=== PATIENT | female | born 1970 | race Caucasian/White ===

== ENCOUNTER 2019-04-07 12:22 | Emergency (ER) | payer SELFPAY ==
[2019-04-07 12:37] LABS: ABSOLUTE BASOPHILS # (AUTO) 0.1 10^3/uL (0.0-0.2); ABSOLUTE EOSINOPHILS # (AUTO) 0.1 10^3/uL (0.0-0.6); ABSOLUTE LYMPHOCYTES (AUTO) 1.9 10^3/uL (0.5-4.7); ABSOLUTE MONOCYTES (AUTO) 0.4 10^3/uL (0.1-1.4); ABSOLUTE NEUT (AUTO) 3.4 10^3/uL (1.7-8.2); BASOPHILS % (AUTO) 0.9 % (0-2); EOSINOPHILS % (AUTO) 1.3 % (0-6); HEMATOCRIT 35.2 % (36.0-47.0); HEMOGLOBIN 11.8 g/dL (12.0-15.5); LYMPHOCYTES % (AUTO) 32.3 % (13-45); MEAN CORPUSCULAR HEMOGLOBIN 27.6 pg (27.0-33.4); MEAN CORPUSCULAR HGB CONC 33.5 g/dL (32.0-36.0); MEAN CORPUSCULAR VOLUME 82 fl (80-97); MONOCYTES % (AUTO) 7.5 % (3-13); PLATELET COUNT 255 10^3/uL (150-450); RED BLOOD COUNT 4.27 10^6/uL (3.72-5.28); RED CELL DISTRIBUTION WIDTH 14.3 % (11.5-14.0); TOTAL CELLS COUNTED % (AUTO) 100 %; WHITE BLOOD COUNT 5.9 10^3/uL (4.0-10.5)
[2019-04-07 12:43] LABS: PROTHROMBIN TIME 14.3 SEC (11.4-15.4)
[2019-04-07 12:54] LABS: ALKALINE PHOSPHATASE 92 U/L (38-126); ANION GAP 11 (5-19); ASPARTATE AMINO TRANSFERASE 25 U/L (14-36); BILIRUBIN,DIRECT 0.1 mg/dL (0.0-0.4); BILIRUBIN,TOTAL 0.5 mg/dL (0.2-1.3); BLOOD UREA NITROGEN 11 mg/dL (7-20); CALCIUM 8.9 mg/dL (8.4-10.2); CARBON DIOXIDE 24 mmol/L (22-30); CHLORIDE 103 mmol/L (98-107); GLUCOSE 151 mg/dL (75-110); POTASSIUM 3.4 mmol/L (3.6-5.0); TOTAL PROTEIN 6.4 g/dL (6.3-8.2)
[2019-04-07 13:12] LABS: ALCOHOL < 10 mg/dL (NONE DETECTED); SALICYLATE < 1.0 mg/dL (2.0-20.0)
--- NOTE | 2019-04-07 13:28 | ER Document Report ---
Entered by CYRUS CAMPO SCRIBE 04/07/19 1246 Acting as scribe for:NIKOLAI MEZA MD ED Psych Disorder / Suicide - General Stated Complaint: POSSIBLE OVERDOSE Time Seen by Provider: 04/07/19 12:33 Information source: Patient, Relative Notes: Patient is a 48-year-old female who presents to the emergency department today after taking 800mg of her 's seroquel just prior to arrival. at the bedside states that he and her were "in a fight that never seemed to end over something stupid" but will not elaborate on this. states to his knowledge she did not take anything else. Patient states she took it because she was anxious, upset, and wanted to get to sleep. Patient is somnolent on arrival here so most history is being given by her . - Related Data Allergies/Adverse Reactions: bupropion [From Wellbutrin] Allergy (Severe, Verified 04/07/19 12:58) Hives Past Medical History - General Information source: Relative - significant other Cannot obtain history due to: Altered mental status - Social History Smoking Status: Never Smoker Cigarette use (# per day): No Chew tobacco use (# tins/day): No Smoking Education Provided: No Frequency of alcohol use: None Drug Abuse: None Lives with: Family Family History: Reviewed & Not Pertinent Past Surgical History: Reports: Hx Cholecystectomy Review of Systems - Review of Systems -: Yes ROS unobtainable due to patient's medical condition - somnolent Physical Exam - Vital signs Vitals: Pulse Ox 96 04/07/19 12:23 - Notes Notes: Physical Exam: General: Somnolent but arousable, continues to fall back asleep during exam. HEENT: Normocephalic. Atraumatic. PERRL. Extraocular movements intact. Oropharynx clear. Neck: Supple. Non-tender. Respiratory: No respiratory distress. Clear and equal breath sounds bilaterally. Cardiovascular: Regular rate and rhythm. Abdominal: Normal Inspection. Non-tender. No distension. Normal Bowel Sounds. Back: No gross abnormalities. Extremities: Moves all four extremities. Upper extremities: Normal inspection. Normal ROM. Lower extremities: Normal inspection. No edema. Normal ROM. Neurological: Difficult to keep awake, slurred speech. Skin: Warm. Dry. Normal color. Course - Re-evaluation Re-evalutation: 04/07/19 15:22 Patient remains quite drowsy. Shahbaz Pelayo told me that she was really unable to interview the patient due to her somnolence. She will be placed on IVC hold until tomorrow morning when she can be better evaluated from a psychological standpoint to determine the continued risk for self harmful behavior. - Vital Signs Vital signs: Temp Pulse Resp BP Pulse Ox 16 113/67 98 04/07/19 14:31 04/07/19 14:31 04/07/19 14:31 - Laboratory Result Diagrams: 04/07/19 11:45 04/07/19 11:45 Laboratory results interpreted by me: 04/07/19 04/07/19 04/07/19 11:45 11:45 11:45 Hgb 11.8 L Hct 35.2 L RDW 14.3 H Potassium 3.4 L Glucose 151 H POC Glucose Salicylates < 1.0 L Acetaminophen < 10 L 04/07/19 12:36 Hgb Hct RDW Potassium Glucose POC Glucose 146 H Salicylates Acetaminophen - EKG Interpretation by Me EKG shows normal: Sinus rhythm, Corn[place], Intervals, QRS Complexes. abnormal: ST-T Waves - Borderline inferior T abnormalities Rate: Tachycardia - 103 When compared to previous EKG there are: Previous EKG unavailable Discharge - Discharge Clinical Impression: Overdose Qualifiers: Encounter type: initial encounter Injury intent: undetermined intent Qualified Code(s): T50.904A - Poisoning by unspecified drugs, medicaments and biological substances, undetermined, initial encounter Condition: Stable Disposition: PSYCH HOSP/UNIT Scribe Attestation: 04/07/19 15:13 I personally performed the services described in the documentation, reviewed and edited the documentation which was dictated to the scribe in my presence, and it accurately records my words and actions. I personally performed the services described in the documentation, reviewed and edited the documentation which was dictated to the scribe in my presence, and it accurately records my words and actions.
[2019-04-07 13:54] LABS: ACETAMINOPHEN < 10 ug/mL (10-30)
[2019-04-07 16:05] LABS: AMORPHOUS SEDIMENT,URINE TRACE /HPF; APPEARANCE,URINE CLOUDY; BILIRUBIN,URINE NEGATIVE (NEGATIVE); COLOR,URINE YELLOW; GLUCOSE, URINE NEGATIVE (NEGATIVE); KETONES,URINE 20 mg/dL (NEGATIVE); LEUKOCYTE ESTERASE,URINE NEGATIVE (NEGATIVE); NITRITE,URINE POSITIVE (NEGATIVE); PROTEIN,URINE 30 mg/dL (NEGATIVE); URINE SPECIFIC GRAVITY 1.021; UROBILINOGEN,URINE NEGATIVE mg/dL (<2.0)
[2019-04-07 16:21] LABS: URINE AMPHETAMINES SCREEN NEGATIVE; URINE BARBITURATES SCREEN NEGATIVE; URINE BENZODIAZEPINES SCREEN NEGATIVE; URINE COCAINE SCREEN NEGATIVE; URINE MARIJUANA (THC) SCREEN NEGATIVE; URINE METHADONE SCREEN NEGATIVE; URINE PHENCYCLIDINE SCREEN NEGATIVE
--- NOTE | 2019-04-07 17:35 | EKG REPORT ---
SEVERITY:- BORDERLINE ECG - SINUS TACHYCARDIA BORDERLINE INFERIOR Q WAVES BORDERLINE T ABNORMALITIES, INFERIOR LEADS : Confirmed by: Cristian Nicole MD 07-Apr-2019 17:35:01
--- NOTE | 2019-04-08 09:43 | ER Document Report ---
Doctor's Note Notes: 04/08/19 09:42 I have evaluated this pt. this am and she has no c/o at this time. She feels all of her needs are being met and her physical exam is normal. She is awaiting disposition per mental health.
--- NOTE | 2019-04-08 10:06 | PSYCHOLOGICAL NOTE ---
Psych Note - Psych Note Date seen by psych provider: 04/08/19 Time seen by psych provider: 09:00 Psych Note: Patient is a 48-year-old female who presents to the emergency department today after taking 800mg of her 's seroquel just prior to arrival yesterday. relationship discord no medication recommendations impression/Plan: Patient is recommended for rescind of IVC and is cleared from acute psychiatric services
[2019-04-08 10:27] VITALS: BP 143/62
== END 2019-04-08 10:27 | disposition home or self-care (01) ==
LOC: ER 12:22
DX: T43.594A Poisoning by other antipsychotics and neuroleptics, undetermined, initial encounter (principal); R40.0 Somnolence; R00.0 Tachycardia, unspecified; Z63.0 Problems in relationship with spouse or partner; Z88.8 Allergy status to other drugs, medicaments and biological substances
CPT/HCPCS: 36415; 80053; 80307; 81001; 82962; 83735; 84702; 85025; 85610; 93005; 93010; 99285